=== PATIENT | male | born 1965 | race Caucasian/White ===

== ENCOUNTER → 2017-06-11 | Outpatient (CLI) | payer BC ==
--- NOTE | 2017-06-11 15:22 | REP ---
CT CHEST WITHOUT CONTRAST: HISTORY: Ascending aortic aneurysm. No comparison study available. CT FINDINGS: Preliminary digital market intelligence consultant radiograph demonstrates tortuosity of the thoracic aorta. Axial CT images show some mild lingular fibrosis. Lung eknnedy are otherwise clear. No pleural or pericardial effusion is seen. No hilar or mediastinal mass or adenopathy is seen. There is minimal vascular calcification along the inferior surface of the aortic arch. The aorta is somewhat tortuous. The ascending aorta measures 5.1 cm in anteroposterior dimension at the level of the left main pulmonary artery and is felt to be dilated. No mural thickening is seen. Great vessels are unremarkable. Descending aorta is normal in caliber, 3.2 cm. No adrenal lesion is seen. The visualized upper abdominal structures are unremarkable. No extrathoracic mass or adenopathy is seen. Bone window settings show no significant bony abnormality. IMPRESSION: Dilated ascending aorta, 5.1 cm in AP dimension. Signed by Juni Issa MD 06/11/2017 03:27 P
== END ==
LOC: M RAD 07:13
PROVIDERS: ATTEND Internal Medicine Cardiovascular Disease
DX: I71.2 Thoracic aortic aneurysm, without rupture (principal)

== ENCOUNTER → 2021-12-19 | Outpatient (CLI) | payer OTHER ==
[~2021-12-19] MED LIST: ISOVUE-370 76% 100ML VIAL As Ordered ONE
== END ==
LOC: M RAD 17:21
PROVIDERS: ATTEND Nurse Practitioner Family
DX: I71.2 Thoracic aortic aneurysm, without rupture (principal)
CPT/HCPCS: 71275; Q9967

== ENCOUNTER → 2024-12-26 | Outpatient (CLI) | payer OTHER ==
[~2024-12-26] MED LIST changes: -ISOVUE-370 76% 100ML VIAL As Ordered ONE; +ISOVUE-370 76% 100ML VIAL ONE
== END ==
LOC: M PLAIMG 12:26
PROVIDERS: ATTEND Internal Medicine Cardiovascular Disease
DX: I71.21 Aneurysm of the ascending aorta, without rupture (principal)
CPT/HCPCS: 71275; Q9967